=== PATIENT | female | born 1980 | race Caucasian/White ===

== ENCOUNTER 2024-05-09 12:59 | Emergency (ER) | payer MEDICAID, SELFPAY ==
[2024-05-09 13:14] VITALS: BP 153/103; PULSE 95; RESP 16; TEMP 36.7; O2SAT 99; BMI 35.4
--- NOTE | 2024-05-09 13:30 | ED_ITS ---
HPI - Neck Pain/Injury 2 General: Chief Complaint: Neck Pain/Injury Stated Complaint: neck/throat/back/ear pain, fever Time Seen by Provider: 05/09/24 13:29 History of Present Illness: 44-year-old female comes in today for co mplaints of neck discomfort worse over the last 4 days. Patient states on Tuesday she started having some discomfort with difficulty with rotating her neck which is not abnormal for her. Patient states that has not improved since the weekend even after use of ibuprofen. Patient reports over the last 2 days she has had some difficulty with swallowing and some increased right ear pain. Patient appears nontoxic. Patient does endorse a tick bite about 2 to 3 weeks ago. Patient reports no chills or fevers but does feel flushed at night. Patient does have some increased pain in her neck at night. Review of Systems 2 General: Reports: 10 or more systems reviewed and unremarkable except in HPI and below Musc: Reports: neck pain Physical Exam 2 Const: COMMON NORMALS: alert HENMT: COMMON NORMALS: normocephalic HEAD & SCALP: normocephalic THROAT: posterior oropharynx normal Neck/C-Spine: CERVICAL SPINE: Yes cervical ROM abnormal, Yes pain with cervical ROM, No Cervical spine tenderness, No step off deformity and Yes Paracervical muscle tenderness Chest: COMMONS NORMALS: normal inspection of the chest Resp: COMMON NORMALS: normal respiratory effort and clear to auscultation bilaterally AUSCULTATION: clear to auscultation bilaterally Cardio: COMMON NORMALS: regular rate and regular rhythm RATE: regular rate RHYTHM: regular rhythm GI: COMMON NORMALS: Soft to palpation and non-tender PALPATION: Yes Soft to palpation Back/Pelvis: COMMON NORMALS: thoracic and lumbar spine normal to inspection Extremity: COMMON NORMALS: full ROM Neuro: SENSORIUM/ORIENTATION: Yes alert Skin: COMMON NORMALS: turgor normal GENERAL SKIN EXAM: turgor normal Course 2 Vital Signs: Vital signs: Vital Signs Temperature 98.1 F 05/09/24 13:14 Pulse Rate 95 05/09/24 13:14 Respiratory Rate 16 05/09/24 13:14 Blood Pressure 153/103 05/09/24 13:14 Pulse Oximetry 99 05/09/24 13:14 Oxygen Delivery Me thod Room Air 05/09/24 13:14 MDM - Neck Pain/Injury Medical Decision Making 44-year-old female comes in today for complaints of neck discomfort worsening over the last 4 days. On exam patient appears nontoxic. Respirations are even. Lungs are clear to auscultation. Patient has some paracervical spinous muscles. No midline tenderness or step-off. Posterior pharynx is normal. Bilateral TMs are normal. Lungs are clear to auscultation. Patient has a well- healed insect bite to the right shoulder. Differential diagnosis includes viral syndrome, calcific tendinitis of the cervical vertebrae, intervertebral disc disease, facet arthropathy, cervical muscle strain. 1434, CT scan suggestive calcific tendinitis of the longus colli area. 1502, CBC was normal. CMP was unremarkable. Sed rate was at 32, CRP was 56.7. Recommended treatment with NSAIDs and a steroid daily for the next 7 days. Patient be started on celecoxib and prednisone 20. Patient was set to follow-up with orthopedic spine for further evaluation and repeat imaging until resolved. Patient reports understanding of care plan and need for follow-up or return to the ER. Outstanding lab is tick panel. Lab Data 05/09/24 13:55 05/09/24 13:55 Radiology Impressions Cervical Spine CT 05/09/24 13:36 IMPRESSION: Findings above most compatible with acute calcific longus colli tendinitis. Recommend follow-up symptoms to resolution. If symptoms persist recommend follow-up MRI cervical spine without and with gadolinium enhancement Discussed with BENNY Allen at 05/09/2024 2:19 PM. Laboratory Results WBC 7.11 10^3/uL (3.29-11.43) 05/09/24 13:55 RBC 4.48 10^6/uL (3.85-5.65) 05/09/24 13:55 Hgb 13.00 g/dL (11.27-16.99) 05/09/24 13:55 Hct 39.2 % (36-47) 05/09/24 13:55 MCV 87.5 fl (85-98) 05/09/24 13:55 MCH 29.0 pg (27-33) 05/09/24 13:55 MCHC 33.2 g/dL (30-55) 05/09/24 13:55 RDW 13.0 % (12.1-15.1) 05/09/24 13:55 Plt Count 263 10^3/cmm (157-399) 05/09/24 13:55 MPV 11.5 fL (7.4-10.4) H 05/09/24 13:55 Neut % (Auto) 71.2 % 05/09/24 13:55 Lymph % (Auto) 15.6 % 05/09/24 13:55 [place] % (Auto) 11.5 % 05/09/24 13:55 Eos % (Auto) 1.0 % 05/09/24 13:55 Baso % (Auto) 0.3 % 05/09/24 13:55 Neut # (Auto) 5.06 10^3/uL (1.8-7.7) 05/09/24 13:55 Lymph # (Auto) 1.1 10^3/uL (0.8-4.8) 05/09/24 13:55 [place] # (Auto) 0.8 10^3/uL (0.2-0.9) 05/09/24 13:55 Eos # (Auto) 0.1 10^3/uL (0.0-0.8) 05/09/24 13:55 Baso # (Auto) 0.0 10^3/uL (0.0-0.1) 05/09/24 13:55 Nucleated RBC % (auto) 0 % 05/09/24 13:55 Nucleated RBCs # 0.0 /100WBC 05/09/24 13:55 ESR 32 mm/hr (0-15) H 05/09/24 13:55 Sodium 139 mmol/L (136-145) 05/09/24 13:55 Potassium 3.7 mmol/L (3.5-5.1) 05/09/24 13:55 Chloride 102 mmol/L (98-107) 05/09/24 13:55 Carbon Dioxide 25 mmol/L (22-29) 05/09/24 13:55 Anion Gap 15.7 (5-19) 05/09/24 13:55 BUN 12 mg/dL (6-20) 05/09/24 13:55 Creatinine 0.7 mg/dL (0.5-0.9) 05/09/24 13:55 GFR Calculation 91.8 mL/min (90-130) 05/09/24 13:55 Glucose 101 mg/dL (65-115) 05/09/24 13:55 Calculated Osmolality 288 mOsm/kg (285-295) 05/09/24 13:55 Calcium 9.5 mg/dL (8.5-10.5) 05/09/24 13:55 Total Bilirubin 0.3 mg/dL (0.15-1.2) 05/09/24 13:55 AST 16 U/L (0-32) 05/09/24 13:55 ALT 12 U/L (0-33) 05/09/24 13:55 Alkaline Phosphatase 82 U/L (35-105) 05/09/24 13:55 C-Reactive Protein 56.7 mg/L (0.0-4.9) H 05/09/24 13:55 Total Protein 8.4 g/dL (6.6-8.7) 05/09/24 13:55 Albumin 4.1 g/dL (3.5-5.2) 05/09/24 13:55 Globulin 4.3 g/dL (1.3-4.6) 05/09/24 13:55 All radiology interpretation(s) finalized by discharge Discharge Plan Discharge Patient Disposition: Home Clinical Impression: Tendinitis Condition: Stable Prescriptions: New prednisone 20 mg tablet 20 mg PO DAILY 7 Days Qty: 7 0RF celecoxib 200 mg capsule 200 mg PO BID Qty: 20 0RF Discharge Orders: Discharge ED (Routine); Ordered 05/09/24 Ordered By: Rick Bah Referrals: Vijay Griffith MD [Family Provider] - Discharge Diet: Usual diet Discharge Activity: Increase activity as tolerated Patient Instructions: Calcific Tendinitis (ED) Activity Restrictions/Additional Instructions: Take medications as directed. Follow-up with orthopedic spine for further evaluation and treatment. Return to ED for fever greater than 100.4, severe headache, inability to hold fluids down. Coding Level of Care Code ED Instructional Technology Director for Jorge Colin
--- NOTE | 2024-05-09 13:36 | CT_ITS ---
WS: [id number] CT CERVICAL TRAUMA TECHNIQUE: Noncontrast CT of the cervical spine with coronal and sagittal reformatted images. CLINICAL INFORMATION: worsening neck pain COMPARISON: None. DLP: 201.[address] scans at [facility] use at least one of these dose optimization techniques: automated e xposure control; mA and/or kV adjustment per patient size (includes targeted exams where dose is matc hed to clinical indication); or iterative reconstruction. FINDINGS: Prevertebral soft tissue thickening with focal amorphous calcifications at the C1-C2 juncti on near the insertion of the longus colli tendon. Thin retropharyngeal fluid collection extending fro m C2 inferiorly to C6. Soft tissue thickening and edema of the prevertebral muscles. No evidence of d iscitis. Straightening of the normal cervical lordosis. No high-grade spinal canal narrowing. Normal C1 ring. No evidence of acute fracture or dislocation. Mastoids air cells are well aerated. A few slightly prominent cervical lymph nodes likely reactive. CT/CT cervical spin wo con* [id number] IMPRESSION: Findings above most compatible with acute calcific longus colli tendinitis. Rec ommend follow-up symptoms to resolution. If symptoms persist recommend follow-u p MRI cervical spine without and with gadolinium enhancement Discussed with BENNY Allen at 05/09/2024 2:19 PM.
[2024-05-09] MEDS: dexamethasone 10 mg/mL INJ IVP (13:59)
[2024-05-09] MEDS: sodium chloride 0.9% 1,000 ML 999 ML IV (13:59)
[2024-05-09 14:20] LABS: Erythrocyte Sedimentation Rate 32 mm/hr (0-15)
[2024-05-09 14:23] LABS: Basophils % 0.3 %; Eosinophils # 0.1 10^3/uL (0.0-0.8); Hematocrit 39.2 % (36-47); Lymphocytes # 1.1 10^3/uL (0.8-4.8); Lymphocytes % 15.6 %; Mean Corpuscular HGB Conc 33.2 g/dL (30-55); Mean Corpuscular Volume 87.5 fl (85-98); Mean Platelet Volume 11.5 fL (7.4-10.4); Monocytes # 0.8 10^3/uL (0.2-0.9); Monocytes % 11.5 %; Neutrophils # 5.06 10^3/uL (1.8-7.7); Neutrophils % 71.2 %; Nucleated Red Blood Cells % 0 %; Platelet Count 263 10^3/cmm (157-399); Red Blood Count 4.48 10^6/uL (3.85-5.65); White Blood Count 7.11 10^3/uL (3.29-11.43)
[2024-05-09 14:44] LABS: Alanine Aminotransferase 12 U/L (0-33); Albumin Level 4.1 g/dL (3.5-5.2); Alkaline Phosphatase 82 U/L (35-105); Anion Gap 15.7 (5-19); Aspartate Amino Transferase 16 U/L (0-32); Blood Urea Nitrogen 12 mg/dL (6-20); C Reactive Protein 56.7 mg/L (0.0-4.9); Calcium 9.5 mg/dL (8.5-10.5); Carbon Dioxide 25 mmol/L (22-29); Chloride 102 mmol/L (98-107); Creatinine Clr Calc Pharmacy 137.6182; Globulin 4.3 g/dL (1.3-4.6); Glomerular Filtration Rate 91.8 mL/min (90-130); Glucose 101 mg/dL (65-115); Osmolality Calculated 288 mOsm/kg (285-295); Potassium 3.7 mmol/L (3.5-5.1); Sodium 139 mmol/L (136-145); Total Bilirubin 0.3 mg/dL (0.15-1.2); Total Protein 8.4 g/dL (6.6-8.7)
[2024-05-09] MEDS: ketorolac 30 mg/mL INJ 15 MG IVP (15:02)
[2024-05-09 15:30] VITALS: BP 143/89; PULSE 88; O2SAT 99
--- NOTE | 2024-05-10 13:20 | DCPLANNER ---
messaged ortho for er f/u
[2024-05-10 13:25] LABS: Lyme AB Screen <0.90 index
[2024-05-14 17:34] LABS: E. Chaffeensis AB IGG <1:64; E. Chaffeensis AB IGM <1:20
[2024-05-15 17:00] LABS: RMSF IGG NOT DETECTED; RMSF IGM NOT DETECTED
== END 2024-05-09 15:32 | disposition home or self-care (01) ==
PROVIDERS: Emergency Provider Nurse Practitioner Family
DX: M77.9 Enthesopathy, unspecified (principal)
CPT/HCPCS: 72125; 80053; 85025; 85651; 86140; 86618; 86666; 86757; 96374; 96375; 99285; J1100; J1885; J7030